=== PATIENT | female | born 1955 | race Caucasian/White ===

== ENCOUNTER 2019-10-28 19:24 | Inpatient (IN) | payer SELFPAY ==
[~2019-10-28] VITALS: Ht 152.4 cm; Wt 71.2 kg
[2019-10-28 19:46] VITALS: Ht 152.4 cm; Wt 71.2 kg
[2019-10-28] MEDS ORDERED: SIMVASTATIN5 M2 PO (19:56)
[2019-10-28] MEDS ORDERED: HUMALOG100 UNIT/1 (19:56)
[2019-10-28] MEDS ORDERED: LEVEMIR100 U/M1 SQ (19:57)
[2019-10-28] MEDS ORDERED: NATURE'S BLEN2000 IU (19:58)
--- NOTE | 2019-10-28 20:11 | NUR ---
PATIENT THROUGH TRIAGE FROM HOME, REPORTS MIDSTERNAL CHEST PRESSURE RATED 8/10 THAT STARTED 3 DAYS AGO, WORSE TODAY, REPORTS THAT SHE TOOK ONE NTG SL AT HOME WITH SOME RELIEF, REPORTS DRY COUGH, SORE THROAT, RESPIRATIONS EVEN AND UNLABORED, SKIN WARM AND DRY, SR ON LINUX ADMIN. O2 SAT 100% ON ROOM AIR, AFEBRILE AT PRESENT.
[2019-10-28 20:44] LABS: BASOPHIL % 0.5 % (0-2); PLATELET COUNT 203 x10^3mcL (130-400); RED CELL DISTRIBUTION WIDTH 13.6 % (11.5-14.5)
[2019-10-28 20:51] LABS: CALCIUM 9.4 mg/dL (8.5-10.1); CARBON DIOXIDE 29.8 mmol/L (21-32); CHLORIDE SERUM 100 mmol/L (98-107); CREATININE SERUM 0.9 mg/dL (0.6-1.0); GFR1 > 60 mL/min; GLUCOSE SERUM 226 mg/dL (74-106); POTASSIUM SERUM 4.2 mmol/L (3.5-5.1); SODIUM SERUM 137 mmol/L (136-145)
[2019-10-28 20:52] LABS: microscopic required? YES; urine erythrocyte TRACE (NEGATIVE)
[2019-10-28 20:56] LABS: ALBUMIN 3.5 g/dL (3.4-5.0); ALKALINE PHOSPHATASE 66 U/L (46-116); ALT/SGPT 26 U/L (14-59); AST/SGOT 17 U/L (15-37); BILIRUBIN TOTAL 0.21 mg/dL (0.20-1.00); LIPASE 251 IU/L (73-393); TOTAL PROTEIN, SERUM 7.4 g/dL (6.4-8.2)
--- NOTE | 2019-10-28 23:30 | NUR ---
RECEIVED PATIENT FROM ER VIA GUERNEY, PATIENT ABLE TO WALK IN THE ROOM W/O ASSIST. AA/O X4. STATE CP/PRESSURE 5/10 AT THIS TIME AFTER CAME BACK FROM BATHROOM. RESTING IN BED. LABORED AND SOB NOTED. NO ACUTE DISTRESS NOTED. GRANT RN PLACE TELE #9 ON PATIENT. NSR W/ HR [address] RUTLEDGE IN THE ROOM INTERVIEW AND ASSESS PATIENT W/ GRANT RN TRANSLATE. ORIENTED TO CALL LIGHT. GRANT RESUME CARE.
[2019-10-28 23:55] LABS: HDL CHOLESTEROL 39 mg/dL (40-60)
[2019-10-28 23:56] VITALS: BP 150/69
[2019-10-29 00:08] LABS: FREE T4 1.04 ng/dL (0.76-1.46); FREE THYROXINE INDEX 1.9 ug/dL (1.4-4.5); T3 TOTAL 1.2 ng/mL; T4(THYROXINE) 5.8 ug/dL (4.7-13.3)
[2019-10-29 00:09] LABS: CHOLESTEROL 207 mg/dL (<200); CHOLESTEROL/HDL RATIO 5.3; TRIGLYCERIDES 415 mg/dL (<150)
[2019-10-29 00:12] LABS: AMPHETAMINE QUAL UR NONE DETECTED (See below)
--- NOTE | 2019-10-29 02:14 | NUR ---
PT C/O 5/10 HEADACHE PAIN, MEDICATED WITH PRN TYLENOL PER SEP. NO ACUTE DISTRESS NOTED. WILL CONT TO MONITOR.
[2019-10-29 06:53] VITALS: BP 156/62
--- NOTE | 2019-10-29 06:55 | NUR ---
PT STAYED AWAKE DURING THE NIGHT, BREATHING EVEN AND UNLABORED ON RA. O2 SAT 100%. PT C/O 01/31 CHEST PAIN, MEDICATED WITH PRN MORPHINE PER SEP. NO ACUTE DISTRESS NOTED. ALL NEEDS ASSESSED AND ATTENDED TO. DROPLET/CONTACT PRECAUTIONS IN PLACE. SAFETY PRECAUTIONS IN PLACE. CALL LIGHT WITHING REACH. WILL CONT TO MONITOR AND ENDORSE CARE TO AM NURSE.
[2019-10-29 07:10] LABS: BASOPHIL % 0.5 % (0-2); PLATELET COUNT 183 x10^3mcL (130-400); RED CELL DISTRIBUTION WIDTH 13.3 % (11.5-14.5)
[2019-10-29 08:00] VITALS: BP 126/64
--- NOTE | 2019-10-29 08:00 | NUR ---
RECEIVED PATIENT. IN BED, SLEEPING. EASILY AROUSABLE. NO ACUTE RESP DISTRESS NOTED. NO C/O PAIN AT THIS TIME. VITAL SIGNS ARE STABLE. IV INTACT AND PATENT. SAFETY PRECAUTION IN PLACE. CALL LIGHT WITHIN REACH. WILL CONTINUE TO MONITOR. ASSISTED PATIENT WITH BREAKFAST TRAY SETUP.
[2019-10-29 08:48] LABS: CALCIUM 9.1 mg/dL (8.5-10.1); CARBON DIOXIDE 27 mmol/L (21-32); CHLORIDE SERUM 104 mmol/L (98-107); CREATININE SERUM 0.7 mg/dL (0.6-1.0); GFR1 > 60 mL/min; GLUCOSE SERUM 241 mg/dL (74-106); MAGNESIUM 1.6 mg/dL (1.8-2.4); PHOSPHOROUS 2.9 mg/dL (2.5-4.9); POTASSIUM SERUM 4.1 mmol/L (3.5-5.1); SODIUM SERUM 140 mmol/L (136-145)
--- NOTE | 2019-10-29 09:55 | NUR ---
SPOKE WITH DR. JACKSON REGARDING MG 1.6. PER DR. JACKSON, HE WILL PUT IN ORDER. ALSO CLARIFIED DISCONTINUATION OF ROCEPHIN WITH DR. JACKSON. PER DR. JACKSON, DR. ADAMS DOES NOT SEE THE NEED FOR ROCEPHIN AT THIS TIME. HOWEVER, AZITHROMYCIN IS CONTINUED PATIENT IS RULE OUT COVID AT THIS TIME. WILL CONTINUE TO MONITOR.
--- NOTE | 2019-10-29 10:05 | NUR ---
PATIENT IN BED, STABLE. NO ACUTE RESP DISTRESS NOTED. NO C/O PAIN AT THIS TIME. IV INTACT AND PATENT. NO ERYTHEMA/SWELLING NOTED. SAFETY PREC IN PLACE. CALL LIGHT WIHTIN REACH. WILL CONTINUE TO MONITOR. REMAINS ON DROPLET ISO FOR RULE OUT COVID. COVID RESULTS PENDING.
[2019-10-29 10:11] LABS: C REACTIVE PROTEIN 0.4 mg/dL (<=0.9)
--- NOTE | 2019-10-29 12:20 | NUR ---
PATIENT COMPLAINING OF 7/10 HEADACHE. ACETAMINOPHEN 650 MG PO GIVEN. INFORMED PATIENT ABOUT NEED FOR RESP CULTURE AND SPECIMEN CUP GIVEN. PATIENT VERBALIZED UNDERSTANDING. WILL CONTINUE TO MONITOR.
[2019-10-29 12:40] VITALS: BP 125/64
--- NOTE | 2019-10-29 12:40 | NUR ---
PATIENT SEEN AMBULATING FROM BED TO RESTROOM WITH STEADY GAIT. NO ACUTE RESP DISTRESS NOTED. IV INTACT AND PATENT. NO ERYTHEMA/SWELLING NOTED. SAFETY PREC IN PLACE. CALL LIGHT WIHTIN REACH. WILL CONTINUE TO MONITOR. REMAINS ON DROPLET ISO FOR RULE OUT COVID. COVID RESULTS PENDING.
--- NOTE | 2019-10-29 16:00 | NUR ---
FOLLOWED UP ORDERED ECHOCARDIOGRAM. PER ECHO, THEY ARE AWARE BUT SINCE PATIENT IS RULE OUT COVID, THERE IS A SPECIAL PROTOCOL AND THEY WILL CLARIFY TOMORROW WITH CARDIAC DOCTOR REGARDING ECHO ORDERED.
[2019-10-29 16:30] VITALS: BP 119/61
--- NOTE | 2019-10-29 16:35 | NUR ---
PATIENT IN BED, STABLE. NO ACUTE RESP DISTRESS NOTED. NO COMPLAINTS OF PAIN AT THIS TIME. IV INTACT AND PATENT. NO ERYTHEMA/SWELLING NOTED. SAFETY PREC IN PLACE. CALL LIGHT WIHTIN REACH. WILL CONTINUE TO MONITOR.
--- NOTE | 2019-10-29 18:38 | NUR ---
PATIENT STABLE. NO ACUTE RESP DISTRESS NOTED. NO COMPLAINTS OF PAIN AT THIS TIME. IV INTACT AND PATENT. NO ERYTHEMA/SWELLING NOTED. SAFETY PREC IN PLACE. CALL LIGHT WITHIN REACH. ALL NEEDS MET. WILL ENDORSE CARE TO SPEECH LANGUAGE ASSISTANT NURSE. REMAINS ON DROPLET ISO FOR R/O COVID. COVID RESULT PENDING.
--- NOTE | 2019-10-29 19:40 | NUR ---
ENDORSED CARE TO SENIOR ART DIRECTOR NURSE. ALL NEEDS MET.
[2019-10-29 19:50] VITALS: BP 125/60
--- NOTE | 2019-10-29 19:56 | NUR ---
RECEIVED PATIENT AWAKE IN BED. ALERT AND ORIENTED. VERBALLY RESPONSIVE AND ABLE TO MAKE NEEDS KNOWN. RESPIRATION EVEN AND UNLABORED. NO NOTED SOB. ON ABT AZITHROMYCIN ORDERED. NO NOTED ADVERSE REACTIONS. ON DROPLET PRECAUTION, OBSERVED AT ALL TIMES. CALL LIGHT PLACED WITHIN EASY REACH. WILL CONTINUE TO MONITOR.
--- NOTE | 2019-10-30 00:30 | NUR ---
AZITHROMAX IV ABT GIVEN ORDERED. IV LINE INTACT AND PATENT. NO SOB. NO COUGHING NOTED AT THIS ITME. NO C/O PAIN OR DISCOMFORT. CALL LIGHT WITHIN EASY REACH. DROPLET PRECAUTION OBSERVED AT ALL TIMES.
[2019-10-30 05:00] VITALS: BP 138/45
--- NOTE | 2019-10-30 06:42 | NUR ---
PATIENT AWAKE, AMBULATES TO THE BATHROOM. RESP EVEN AND UNLABORED. NO NOTED SOB. ON ROOM AIR WITH O 2 SAT OF 99%.NO COUGHING NOTED. CONTINUE ON IV ABT, NO NOTED ADVERSE REACTIONS. SALINE LOCK INTACT AND PATENT. BLOOD SUGAR 166. 3 UNITS REGULAR INSULIN GIVEN PER SLIDING SCALE. NO C/O PAIN OR DISCOMFORT. CONTINUE ON DROPLET PRECAUTION FOR R/O COVID. PATIETN WEARING BANDANA MASK INSIDE THE ROOM. NOT IN ANY SIGN OF DISTRESS. V/S STABLE. CALL LIGHT WITHIN EASY REACH. WILL CONTINUE TO MONITOR.
[2019-10-30 07:19] LABS: CALCIUM 9.4 mg/dL (8.5-10.1); CARBON DIOXIDE 32.5 mmol/L (21-32); CHLORIDE SERUM 102 mmol/L (98-107); CREATININE SERUM 0.6 mg/dL (0.6-1.0); GFR1 > 60 mL/min; GLUCOSE SERUM 221 mg/dL (74-106); MAGNESIUM 1.5 mg/dL (1.8-2.4); PHOSPHOROUS 3.5 mg/dL (2.5-4.9); POTASSIUM SERUM 3.9 mmol/L (3.5-5.1); SODIUM SERUM 141 mmol/L (136-145)
[2019-10-30 07:27] LABS: BASOPHIL % 0.7 % (0-2); PLATELET COUNT 227 x10^3mcL (130-400); RED CELL DISTRIBUTION WIDTH 13.4 % (11.5-14.5)
--- NOTE | 2019-10-30 07:30 | NUR ---
RECEIVED PT FROM PROJECT STRUCTURAL ENGINEER. PT AWAKE, ALERT. A/OX4. PT ON ROOM AIR WITH NO RESP DISTRESS NOTED. DENIES SOB. VSS. AFEBRILE. PT ON TELE 9, DENIES CHEST PAIN. IV ACCESS RH, CDI SALINE LOCKED. PERIPHERAL PULSES PALPABLE, NO EDEMA NOTED. ACTIVE BS NOTED. PT DENIES ISSUES WITH ELIMINATION AT THIS TIME. ACTIVE BS NOTED. PT AMBULATORY. PT DENIES PAIN AT THIS TIME. SAFETY MEASURES IN PLACE, BED LOW AND LOCKED. CALL LIGHT WITHIN REACH.
[2019-10-30 08:00] VITALS: BP 123/59
--- NOTE | 2019-10-30 09:14 | NUR ---
DUE MEDICATIONS ADMINISTERED ORDERED. PT MAG NOTED TO BE 1.5 TODAY, NEW ORDER FOR MAG OXIDE PO, GIVEN AT THIS TIME. NO DISCOMFORT OR ACUTE DISTRESS NOTED AT THIS TIME. CALL LIGHT WITHIN REACH.
[2019-10-30 12:22] VITALS: BP 120/58
--- NOTE | 2019-10-30 12:22 | NUR ---
VSS. AFEBRILE. NO ACUTE DISTRESS OR DISCOMFORT NOTED AT THIS TIME. CALL LIGHT WITHIN REACH.
[2019-10-30] MEDS ORDERED: ZITHROMAX250 MG PO (12:23)
[2019-10-30] MEDS ORDERED: CEPACOL SORE TH1 LO4 MM (12:24)
[2019-10-30] MEDS ORDERED: TES100 PO (12:24)
[2019-10-30] MEDS ORDERED: LIPI10 PO (12:24)
--- NOTE | 2019-10-30 14:19 | NUR ---
PT COMPLAINING OF HEADACHE FROM COUGHING. TYLENOL ADMINISTERED FOR COMFORT. TESSALON ADMINISTERED SCHEDULED. NO ACUTE DISTRESS NOTED AT THIS TIME. CALL LIGHT WITHIN REACH.
--- NOTE | 2019-10-30 15:06 | NUR ---
PT REPORTS HEADACHE IS BETTER AT THIS TIME. TYLENOL EFFECTIVE.
[2019-10-30] MEDS ORDERED: METFORMIN HCL500 M4 PO (16:10)
[2019-10-30 17:22] VITALS: BP 115/60
--- NOTE | 2019-10-30 18:41 | NUR ---
PT STABLE AT THIS TIME. ALL NEEDS TENDED TO THROUGHOUT SHIFT. WILL CONTINUE TO MONITOR AND ENDORSE CARE TO BEE RAISER. AWAITING COVID RESULTS.
--- NOTE | 2019-10-30 19:35 | NUR ---
Pt. received from day shift, currently resting in bed. Pt. a/o x4, able to make needs known, able to follow commands, no c/o h/a at this time, and primarily [place]ian speaking. Pt. is breathing even and unlabored no c/o of SOB or s/o distress at this time. Pt. reported to have dry cough, will continue to monitor, pt. remains afebrile. Pt. is SR no c/o fo chest pain athi stime. Pt. noted to have wet stool as of 10/28, no c/o of issues when voiding, ambulatory no c/o weakness or pain. Pt. has RH 22g, pt. reported some discomfort on IV, but dressing in tact and patent, will continue to monitor. John pt. stable, pt. educated on when and how to use call light system, bed set at lowest position w/ call light placed within reach, will continue to monitor and await COVID 19 testing results pending d/c.
[2019-10-30 22:46] VITALS: BP 124/64
--- NOTE | 2019-10-30 23:33 | NUR ---
Pt. noted to be stable, breathing even and unlabored on RA satting at 100%. Pt. has no s/o distress or s/o cough. Pt. tolerating medication well. Pt. c/o of 2/10 h/a, medicated w/ tylenol as ordered. Otherwise, pt. afebrile, no s/o cough, continuing to monitor pt. Pt. able to void and is ambulatory, no c/o of discomfort at this time. Pt. educated on slight IV soreness, pt. verbalized understanding. Will continue to monitor
--- NOTE | 2019-10-31 05:21 | NUR ---
Pt. noted to be asleep throughout the night. Pt. noted to be on Droplet precautions still d/t results pending for COVID-19 testing. Pt. exhibits no s/o distress or SOB, breathing even and unlabored on RA. Pt. remaining afebrile throughout the night. Pt. did c/o of mild 2/10 h/a around 2200, was given tylenol as ordered. When midnight dose of Azithromycin was given, pt. stated the h/a went away. Pt. states that she went to the bathroom twice throughout the shift, no c/o discomfort or pain when urinating. Pt. still ambulatory, BRP, no s/o weakness. needs have been met throughout shift, will continue to monitor and endorse to next shift RN.
--- NOTE | 2019-10-31 06:27 | NUR ---
pT. C/O OF H/A AT HTIS TIME, MEDICATED W/ TYLENOL. WILL CONTINUE TO MONITOR AND ENDORSE TO NEXT SHIFT RN.
[2019-10-31 06:28] VITALS: BP 123/58
--- NOTE | 2019-10-31 07:43 | NUR ---
RECEIVED PATIENT FROM [facility]. PATIENT IN BED AT THIS TIME, IN ISOLATION. DENIES CHEST PAIN, PAIN, SOB, DIZZINESS. BREAKFAST TRAY DELIVERED AND VS TAKEN. PATIENT STATES SHE CAN WALK, WILL CONTINUE TO MONITOR. REVIEWED PLAN OF CARE TODAY WITH PATIENT INCLUDING MEDICATIONS AND ACCUCHECKS W MEALS. WILL WAIT FOR ECHO RESULTS, MEDICAL TEAM, AND DR HOPPER TO COME SEE PATIENT, ALSO WAITING FOR COVID-19 RESULTS. CALL LIGHT IN REACH.
[2019-10-31 07:45] VITALS: BP 115/60
[2019-10-31 07:57] LABS: BASOPHIL % 0.7 % (0-2); PLATELET COUNT 252 x10^3mcL (130-400); RED CELL DISTRIBUTION WIDTH 13.3 % (11.5-14.5)
[2019-10-31 08:17] LABS: CALCIUM 10.1 mg/dL (8.5-10.1); CHLORIDE SERUM 101 mmol/L (98-107); CREATININE SERUM 0.6 mg/dL (0.6-1.0); GFR1 > 60 mL/min; GLUCOSE SERUM 190 mg/dL (74-106); MAGNESIUM 1.5 mg/dL (1.8-2.4); PHOSPHOROUS 3.9 mg/dL (2.5-4.9); POTASSIUM SERUM 4.6 mmol/L (3.5-5.1); SODIUM SERUM 139 mmol/L (136-145)
--- NOTE | 2019-10-31 09:48 | NUR ---
PAGED DR JACKSON TO REPORT NEGATIVE COVID-19 RESULT, ALSO PAGED DR MIRANDA. WILL WAIT FOR RETURN CALL FROM BOTH.
--- NOTE | 2019-10-31 10:24 | NUR ---
NOTIFIED DR JACKSON AT [facility] ABOUT COVID NEGATIVE RESULT. INFORMED HIM WE ARE WAITING FOR DR MIRANDA TO CALL BACK.
--- NOTE | 2019-10-31 10:52 | NUR ---
RETURN CALL FROM DR MIRANDA AND REPORTED RESULTS. DR MIRANDA STATES NO NEED TO REPEAT COVID TEST AT THIS TIME, AND SHE IS CLEARED FOR DISCHARGE. INFORMED DR JACKSON AT [facility], STATES DISCHARGE HAS BEEN PUT IN. INFORMED CHARGE NURSE IVAN. INFORMED PATIENT AT THIS TIME AND MADE AWARE OF DISCHARGE TODAY. WILL COMPILE DISCHARGE PACKET AND WILL DISCHARGE PATIENT TODAY.
[2019-10-31 10:57] VITALS: BP 115/60
--- NOTE | 2019-10-31 12:11 | NUR ---
DISCHARGE PACKET GIVEN AND EXPLAINED TO PATIENT. PATIENT AWARE TO GLASS INSTALLER NEW PRESCRIPTIONS FROM [facility] AND TO FOLLOW UP WITH EITHER PCP OR FU CLINIC HERE. QUESTIONS ADDRESSED, PATIENT ALSO HAS QUESTIONS ABOUT HOME CARE, FACE MASK USAGE. INFORCED NEED TO WASH HANDS AND WIPE DOWN SURFACES AND TO LIMIT VISITORS. PATIENT VERBALIZES UNDERSTANDING. TELE RETURNED TO [facility], IV CATHETER REMOVED AND INTACT. SIGNATURES OBTAINED. PATIENT WILL CHANGE AND GATHER BELONGINGS. ONCE PATIENT RIDE ARRIVES, WILL ESCORT PATIENT DOWNSTAIRS TO LOBBY VIA WHEELCHAIR.
--- NOTE | 2019-10-31 12:57 | NUR ---
PATIENT ESCORTED DOWNSTAIRS W BELONGINGS VIA WHEELCHAIR WITH NA PAT.
== END 2019-10-31 12:50 | disposition home or self-care (01) | DRG 202 ==
LOC: ED 19:24 → DU 22:35
PROVIDERS: Emergency Medicine; Family Medicine; ADMIT Internal Medicine
DX: J20.8 Acute bronchitis due to other specified organisms (principal); N17.0 Acute kidney failure with tubular necrosis; E11.65 Type 2 diabetes mellitus with hyperglycemia; I10 Essential (primary) hypertension; E78.5 Hyperlipidemia, unspecified; R07.89 Other chest pain; B34.9 Viral infection, unspecified; E83.42 Hypomagnesemia; Z79.4 Long term (current) use of insulin; Z68.30 Body mass index [BMI] 30.0-30.9, adult; Z88.8 Allergy status to other drugs, medicaments and biological substances; Z91.041 Radiographic dye allergy status; Z03.818 Encounter for observation for suspected exposure to other biological agents ruled out
CPT/HCPCS: 82962; 83880; 84439; 87804; G0378; J0456; J0696; J2270; J7030; J7050; Q0092; U0002

== ENCOUNTER 2020-04-27 12:35 | Emergency (ER) | payer MEDICAID, SELFPAY ==
[~2020-04-27] VITALS: Ht 157.5 cm; Wt 69.4 kg
[~2020-04-27 12:35] MED LIST: CEPACOL SORE TH1 LO4 MM; HUMALOG100 UNIT/1; LEVEMIR100 U/M1 SQ; LIPI10 PO; METFORMIN HCL500 M4 PO; NATURE'S BLEN2000 IU; SIMVASTATIN5 M2 PO; TES100 PO; ZITHROMAX250 MG PO
[2020-04-27 12:36] VITALS: Ht 157.5 cm; Wt 69.4 kg
[2020-04-27 13:35] LABS: BASOPHIL % 0.4 % (0-2); PLATELET COUNT 228 x10^3mcL (130-400); RED CELL DISTRIBUTION WIDTH 13.3 % (11.5-14.5)
[2020-04-27 13:44] LABS: CALCIUM 9.6 mg/dL (8.5-10.1); CARBON DIOXIDE 28.3 mmol/L (21-32); CHLORIDE SERUM 97 mmol/L (98-107); CREATININE SERUM 1.1 mg/dL (0.6-1.0); GFR1 53 mL/min; GLUCOSE SERUM 408 mg/dL (74-106); POTASSIUM SERUM 3.8 mmol/L (3.5-5.1); SODIUM SERUM 133 mmol/L (136-145)
[2020-04-27 13:48] LABS: ALBUMIN 3.5 g/dL (3.4-5.0); ALKALINE PHOSPHATASE 70 U/L (46-116); ALT/SGPT 28 U/L (14-59); AST/SGOT 18 U/L (15-37); BILIRUBIN TOTAL 0.3 mg/dL (0.20-1.00); C REACTIVE PROTEIN 0.2 mg/dL (<=0.9); LACTIC DEHYDROGENASE (LDH) 157 U/L (100-190); TOTAL PROTEIN, SERUM 7.7 g/dL (6.4-8.2)
[2020-04-27 13:48] LABS: microscopic required? NO
[2020-04-27 14:07] LABS: urine erythrocyte NEGATIVE (NEGATIVE)
[2020-04-27 16:55] VITALS: BP 136/68
== END 2020-04-27 16:55 | disposition home or self-care (01) ==
LOC: ED 12:35
PROVIDERS: Specialist
DX: M79.10 Myalgia, unspecified site (principal); R51.9 Headache, unspecified; R68.83 Chills (without fever); I10 Essential (primary) hypertension; E11.9 Type 2 diabetes mellitus without complications; Z20.828 Contact with and (suspected) exposure to other viral communicable diseases; Z88.8 Allergy status to other drugs, medicaments and biological substances
CPT/HCPCS: 36600; 82962; 83880; 85378; 87804; J1815; J1885; Q0092; U0003-CS